=== PATIENT | female | born 1980 | race Caucasian/White ===

== ENCOUNTER 2021-04-22 17:54 | Outpatient (CLI) | payer SELFPAY ==
--- NOTE | 2021-04-22 17:55 | PC.NURSE ---
PT PRESENTS TO UNIT FROM EMS. 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 REPORTED IT WAS A DIFFICULT DELIVERY AND SHE JUST FEELS WEAK AND FATIGUED. DENIES SOA AND DIZZINESS. FUNDUS IS FIRM AT U/2 WITH MASSAGE. AND PATIENT IS WEARING A BRIEF. REPORTS SHE HAS BEEN WEARING THIS BRIEF SINCE 2. NURSE CHANGED THIS AND APPLIED FRESH CHUX TO MONITOR. REPORTS NO SIGNIFICANT AMOUNT OF BLEEDING WITH DELIVERY. VITALS STABLE. CALL LIGHT WITHIN REACH
[2021-04-22 18:01] VITALS: BMI 25.0
--- NOTE | 2021-04-22 18:03 | PC.NURSE ---
SPOKE WITH DR. CAMPOS REPORT GIVEN ON PATIENTS STATUS, VITALS AND ASSESSMENT. ORDERS FOR CBC- ALL ORDERS R/V. REPORTED THAT HE WILL BE OVER TO SEE PATIENT SHORTLY
[2021-04-22 18:12] VITALS: BP 106/65; PULSE 80; RESP 18; TEMP 36.9; O2SAT 100; BMI 25.0
[2021-04-22 18:30] VITALS: BP 100/70; PULSE 97; RESP 20; O2SAT 100
[2021-04-22 18:37] LABS: MANUAL DIFFERENTIAL MANUAL DIFFERENTIAL (MANUAL DIFF)
[2021-04-22 18:40] LABS: Basophils % 0.2 % (0.1-2.0); Eosinophils # 0.1 K/mm3 (0.0-0.4); Eosinophils % 0.7 % (0.1-12.0); Hematocrit 33.4 % (37.0-47.0); Hemoglobin 11.1 g/dL (12.2-16.2); Lymphocytes # 1.1 K/mm3 (0.7-4.5); Lymphocytes % 8.4 % (10-50); Mean Corpuscular HGB Conc 33.3 g/dL (31.8-35.4); Mean Corpuscular Hemoglobin 28.8 pg (27.0-31.2); Mean Corpuscular Volume 86.4 fl (81-99); Mean Platelet Volume 8.3 fl (7.4-10.4); Monocytes # 0.8 K/mm3 (0.1-1.0); Monocytes % 6.1 % (1.7-9.3); Neutrophils # 10.7 K/mm3 (1.8-7.8); Neutrophils % 84.6 % (37.0-80.0); Platelet Count 209 K/mm3 (142-424); Red Blood Count 3.86 M/mm3 (4.20-5.40); Red Cell Distribution Width 13.8 % (11.5-17.5); White Blood Count 12.7 K/mm3 (4.8-10.8)
--- NOTE | 2021-04-22 18:43 | PC.NURSE ---
SPRITE GIVEN TO PATIENT. PATIENT ALSO REPORTS SHE HAS NOT ATE SINCE DELIVERY AND REPORTS THIS MAY BE WHY SHE FEELS LIKE THIS. REPORTED TO PATIENT LETS WAIT UNTIL WE GET H/H BACK TO FEED HER. NO NEEDS
[2021-04-22 18:53] LABS: Lymphocytes % 6 % (10-50); Monocytes % 5 % (2-9); Neutrophils % 89 % (42-76); Platelet Estimate Normal; RBC Morphology Normal; Total Cells Counted 100
--- NOTE | 2021-04-22 19:15 | PC.NURSE ---
PT TO BATHROOM NOW- PANTIES AND PADS PROVIDED.
--- NOTE | 2021-04-22 19:15 | PC.NURSE ---
REPORTS TO D/C PATIENT ONCE BOLUS IS FINISHED. R/V
--- NOTE | 2021-04-22 19:20 | P.PN_ITS ---
Internal Medicine - PN: Subj *Date: 04/22/21 *Time: 19:20 Interval history: She is a 40-year-old 13 para 11 aborta 2 who delivered at home in [place] a liveborn female child. She was feeling weak after the delivery and was brought to our hospital by ambulance. She is an otherwise healthy lady. Exam Vital signs and Labs for Last 24 Hours: Temp Pulse Resp BP Pulse Ox 98.4 F 80 18 106/65 L 100 04/22/21 18:12 04/22/21 18:12 04/22/21 18:12 04/22/21 18:12 04/22/21 18:12 Laboratory Results - last 24 hr 04/22/21 18:32: WBC 12.7 H, RBC 3.86 L, Hgb 11.1 L, Hct 33.4 L, MCV 86.4, MCH 28.8, MCHC 33.3, RDW 13.8, Plt Count 209, MPV 8.3, Neut % (Auto) 84.6 H, Lymph % (Auto) 8.4 L, [place] % (Auto) 6.1, Eos % (Auto) 0.7, Baso % (Auto) 0.2, Neut # (Auto) 10.7 H, Lymph # (Auto) 1.1, [place] # (Auto) 0.8, Eos # (Auto) 0.1, Baso # (Auto) 0.0, Total Counted 100, Neutrophils % (Manual) 89 H, Lymphocytes % (Manual) 6 L, Monocytes % (Manual) 5, Platelet Estimate Normal, RBC Morphology Normal I & O for Last 24 hours: Intake & Output 04/20/21 04/21/21 04/22/21 04/23/21 11:59 11:59 11:59 11:59 Weight 160 lb - *Routine HEENT Exam Head: Present: normocephalic Eye: Present: EOMI, PERRL ENT: Present: mucous membranes moist - *Routine Abdominal Exam Present: soft, normoactive bowel sounds. Absent: tenderness Comments: Uterus is well contracted. Assessment and Plan (1) Maternal hypotension syndrome, Status: Acute Category: Medical Code(s): O26.50 - Maternal hypotension syndrome, unspecified trimester - Assessment and plan all Dx Assessment and Plan for all problems:: She was quite fatigued post delivery likely as result of not having eaten anything for a day. We gave her some IV fluids and she is feeling much better now after receiving IV fluids and resting. Her hemoglobin is 11.1. She is not actively bleeding. We will plan to discharge her home. She will continue with her vitamins. She will continue with breast-feeding. Her condition on discharge is stable and improved.
== END 2021-04-22 19:28 | disposition home or self-care (01) ==
LOC: OB 04-23 14:34 → OBOUT 04-23 14:34
PROVIDERS: PCP Nurse Practitioner Obstetrics & Gynecology; Visit Provider Nurse Practitioner Obstetrics & Gynecology
DX: O26.893 Other specified pregnancy related conditions, third trimester (principal); Z3A.39 39 weeks gestation of pregnancy; Z37.0 Single live birth
CPT/HCPCS: 36415; 85007; 85014; 85018; 85048; 85049; G0378; G0463